=== PATIENT | female | born 1980 | race Caucasian/White ===

== ENCOUNTER → 2018-03-14 13:00 | Outpatient (CLI) | payer OTHER, SELFPAY | DX: Z23 Encounter for immunization (principal) | CPT/HCPCS: 90471; 90686 ==

== ENCOUNTER → 2019-04-01 17:26 | Outpatient (CLI) | payer OTHER, SELFPAY | DX: Z23 Encounter for immunization (principal) | CPT/HCPCS: 90471; 90686 ==

== ENCOUNTER → 2020-03-25 | Outpatient (CLI) | payer OTHER, SELFPAY | PROVIDERS: Referring Provider Internal Medicine; Visit Provider Internal Medicine | DX: Z23 Encounter for immunization (principal) | CPT/HCPCS: 90471; 90686 ==

== ENCOUNTER → 2020-05-25 10:33 | Outpatient (CLI) | payer OTHER, SELFPAY ==
[2020-05-25 10:59] LABS: COVID19 -Nasal RAPID Negative (Negative)
== END ==
PROVIDERS: Visit Provider Physician Assistant
DX: Z11.59 Encounter for screening for other viral diseases (principal)
CPT/HCPCS: 87635

== ENCOUNTER → 2020-06-03 08:35 | Outpatient (CLI) | payer OTHER, SELFPAY ==
[2020-06-03 09:04] LABS: COVID19 -Nasal RAPID Negative (Negative)
== END ==
PROVIDERS: Visit Provider Physician Assistant
DX: Z11.59 Encounter for screening for other viral diseases (principal)
CPT/HCPCS: 87635

== ENCOUNTER → 2020-09-20 06:58 | Outpatient (CLI) | payer OTHER, SELFPAY ==
--- NOTE | 2020-09-20 | DI.MRI.S_ITS ---
PROCEDURE: MR PELVIS WO/W CON INDICATIONS: Other noninflammatory disorders of ovary TECHNIQUE: Coronal HASTE, sagittal breath-hold T2 FSE; axial T1 FSE with and without fat saturation through the pelvis. Optional long- and short-axis uterine nonbreath-hold T2 FSE through the uterus. Sagittal or axial dynamic VIBE during administration of contrast. Post-contrast axial or coronal VIBE/2-D FLASH with fat saturation from the iliac crests to the symphysis. Optional diffusion weighted imaging and ADC may be performed. COMPARISON: [facility], , US PELVIC/TRANSVAGINAL, 08/24/2020, 7:59. FINDINGS: Image quality: Good. Uterus: Retroverted uterus measures 5.5 x 4.7 x 3.7 cm. Several uterine fibroids. -Left fundal intramural fibroid measuring 2.1 cm. Heterogeneous enhancement. -Right subserosal measuring 1.2 cm. -Right lower uterine segment intramural fibroid measuring 1 cm. -Right lower uterine segment exophytic 2.8 x 2.5 cm, ( and 01/03). (similar to ultrasound measured where it measured 2.4 cm). Homogeneous enhancement. This corresponds to the abnormality seen on pelvic ultrasound. This is adjacent to the right ovary. -Right lower uterine segment exophytic 0.7 cm. Endometrium: Endometrium is normal in thickness measuring 0.4 cm. Junctional zone is normal in thickness at 12 mm or less. Adnexa: Within normal limits. Multiple small ovarian follicles. No ovarian cystic lesion or mass. -Right ovary measures 2.6 x 2.2 x 1.5 cm, volume of 4 cc. -Left ovary measures 2.7 x 2.4 x 1.6 cm, volume of 5 cc. Urinary system: Bladder wall is normal in thickness. Distal ureters are non distended. Urethra appears normal in morphology. Nodes and vessels: No pelvic or inguinal adenopathy by size criteria. Iliac vessels are normal in size. Bowel and peritoneum: No pathologic free pelvic fluid. Inferior colon and small bowel loops are normal in caliber. Soft tissues: No inguinal hernias. No findings of pelvic floor incompetence in the absence of provocation. Bones: Marrow demonstrates normal overall signal. IMPRESSION: 1. No ovarian mass or cystic lesion. Exophytic fibroid adjacent to the right ovary measuring 2.8 cm. 2. Retroverted uterus. Multiple fibroids. 3. Endometrium measures 0.4 cm. No thickening of the junctional zone to suggest adenomyosis. Dictated by: Pavel Cancino M.D. on 09/24/2020 at 16:22 Approved by: Pavel Cancino M.D. on 09/24/2020 at 16:55
== END ==
PROVIDERS: PCP Student in an Organized Health Care Education/Training Program; Referring Provider Student in an Organized Health Care Education/Training Program; Visit Provider Student in an Organized Health Care Education/Training Program
DX: N83.8 Other noninflammatory disorders of ovary, fallopian tube and broad ligament (principal); D25.1 Intramural leiomyoma of uterus; D25.2 Subserosal leiomyoma of uterus
CPT/HCPCS: 72197; A9579

== ENCOUNTER → 2021-04-07 11:02 | Outpatient (CLI) | payer OTHER, SELFPAY | PROVIDERS: PCP Student in an Organized Health Care Education/Training Program; Referring Provider Internal Medicine; Visit Provider Internal Medicine | DX: Z23 Encounter for immunization (principal) | CPT/HCPCS: 90471; 90686 ==

== ENCOUNTER → 2022-03-24 17:14 | Outpatient (CLI) | payer OTHER, SELFPAY | PROVIDERS: PCP Student in an Organized Health Care Education/Training Program; Referring Provider Internal Medicine; Visit Provider Internal Medicine | DX: Z23 Encounter for immunization (principal) | CPT/HCPCS: 90471; 90686 ==

== ENCOUNTER → 2022-12-20 07:43 | Outpatient (CLI) | payer OTHER, SELFPAY ==
--- NOTE | 2022-12-20 07:43 | DI.US.S_ITS ---
PROCEDURE: US PELVIC COMPLETE INDICATIONS: FIBROIDS TECHNIQUE: Real-time scanning was performed of the pelvic organs, with image documentation. Additional endovaginal scanning was necessary due to incomplete visualization of the adnexal and endometrial structures by transabdominal scanning. COMPARISON: [facility], MR, MR PELVIS WO/W CON, 09/20/2020, 7:37. [facility], RG, US PELVIC/TRANSVAGINAL, 08/24/2020, 7:59. FINDINGS: Uterus: Uterus is retroverted and normal in size at 5.5 x 4.6 x 5.0 cm. Endometrium is distorted by fibroids. Myometrium is heterogeneous and contains multiple fibroids. For example: A right anterior subserosal fibroid measures 3.9 x 3.7 x 2.8 cm. A midline posterior intramural fibroid measures 4.2 x 2.7 x 3.1 cm. A right anterior subserosal fibroid measures 1.9 x 1.5 x 1.7 cm. Ovaries: The right ovary measures 2.3 x 1.5 x 2.0 cm, with a calculated ovarian volume of 3.5 cc. The left ovary measures 3.7 x 5.0 x 2.7 cm, with a calculated ovarian volume of 26.3 cc. A simple cyst in the left ovary measures 4.1 x 2.6 x 3.5 cm. The ovaries have a normal sonographic appearance. Less than 12 follicles can be seen in each ovary. No adnexal masses are seen. Other: No pathologic free abdominal or pelvic fluid. IMPRESSION: 1. Multiple uterine fibroids appear mildly increased in size. 2. Left ovarian 4.1 cm simple cyst. We strive to produce accurate, complete, and clear reports of imaging services. To assist us in improving patient care, this report was composed using standard report templates and voice recognition software. Therefore, it may contain abnormal punctuation, insertions and/or omissions. Occasional wrong-word or sound-alike substitutions may occur. Though we review the report and make efforts to correct it, we do recommend that the report be read carefully in proper context to recognize any text inaccuracies. Approved by: Paddy Thakkar M.D. on 12/20/2022 at 10:51
== END ==
PROVIDERS: PCP Family Medicine; Referring Provider Family Medicine; Visit Provider Family Medicine
DX: D25.1 Intramural leiomyoma of uterus (principal); D25.2 Subserosal leiomyoma of uterus; N83.292 Other ovarian cyst, left side
CPT/HCPCS: 76830; 76856

== ENCOUNTER 2023-04-02 10:53 | Day surgery (SDC) | payer OTHER, SELFPAY ==
[2023-03-15 09:24] VITALS: BMI 23.9
[2023-04-02] VITALS (11 sets, daily range): BP systolic 106–148; BP diastolic 61–90; PULSE 70–97; RESP 12–19; TEMP 36.3–36.7; O2SAT 94–99; BMI 23.9
--- NOTE | 2023-04-02 | PATH_ITS ---
[facility] Accession Number: [id number] No. of containers..01 Tissue . 01 Material submitted: . uterus - UTERUS AND BILATERAL FALLOPIAN TUBES . 01 Diagnosis: A. Uterus and Bilateral Fallopian Tubes, Supracervical Hysterectomy and Bilateral Salpingectomy: Myometrium with leiomyomas (up to 1.9 cm). Nonproliferative endometrium. Fallopian tubes unilaterally involved by endometriosis, in addition to benign paratubal cysts. No evidence of malignancy. MRV 04/05/2023 1548 Local . 01 Electronically signed: . Magaly Underwood MD, Pathologist NPI- [id number] . 01 Gross description: . The specimen is received in formalin labeled with the patient's name, , and uterus and bilateral fallopian tubes, consists of a fragmented uterus (__11 grams, 12.1 x 9.0 x 3.8 cm) with two unoriented fimbriated fallopian tubes (6.2 x 0.5 cm and 5.2 x 0.3 cm, respectively), and no cervix or additional adnexa identified. The serosa is pablo and wrinkled with no evidence of hemorrhage or adhesion identified. The endometrium is red-brown and velvety averaging 0.1 cm thick with no lesions identified. The myometrium is pablo and trabecular with multiple well-circumscribed white whorled nodules measuring up to 1.9 cm in greatest dimension with no hemorrhage or necrosis identified. . The longer fallopian tube has violaceous smooth serosa with multiple small cystic structures measuring up to 0.2 cm in greatest dimension filled with cloudy serous fluid. Sectioning reveals an unremarkable stellate lumen. The shorter fallopian tube has pablo, smooth serosa with no cystic structures identified, and sectioning reveals an unremarkable stellate lumen. . Hemodialysis Technician sections are submitted as follows: A1: Endometrium. A2: Serosa. A3: Hemodialysis Technician nodules. A4: Longer fallopian tube to include one-half of bisected fimbriae and cross sections. A5: [place] fallopian tube to include one-half of bisected fimbriae and cross sections. ([id number]) /MRV 04/03/2023 1243 Local . 01 Microscopic: . CD10 immunostain is performed on block A5, with appropriately staining external controls, and highlights the area of endometriosis, in support of the diagnosis. . * This test was developed and its performance characteristics determined by [facility]. It has not been cleared or approved by the U.S. Food and Drug Administration. The FDA has determined that such clearance or approval is not necessary. This test is used for clinical purposes. It should not be regarded as investigational or for research. . 01 Pathologist provided ICD-10: D25.9, N80.9 . 01 CPT . 671921, L45870 Specimen Comment: A courtesy copy of this report has been sent to [phone] Performed at: 01 [facility] [address] [place] [address], [place], [place] [id number] MD Lavon Mclean MD Phone: [phone]
[2023-04-02] MEDS: LACTATED RINGERS 1,000 ML 100 ML IV ×2 (11:38→12:55)
--- NOTE | 2023-04-02 11:49 | PM.PREOP ---
Pre-operative Note Interval Note History & Physical reviewed/Exam performed by Physician: Yes Changes to H&P: No H&P completed within 30 days and has changed as indicated here:: 03/15/23
[2023-04-02] MEDS: CEFAZOLIN 2 GM/100 ML PREMIX 100 ML IV (12:05)
[2023-04-02] MEDS: ACETAMINOPHEN IV 1,000 MG/100 ML VIAL 400 MG IV (12:10)
--- NOTE | 2023-04-02 12:27 | SUR.OPER ---
Lithotomy on padded OR bed. [place] Pad Positioner under torso. Head on pillow, arms padded and tucked at sides. Legs secured in padded yellow fins stirrups. Lithotomy on padded OR bed. [place] Pad Positioner under torso. Head on pillow, arms padded and tucked at sides. Legs secured in padded yellow fins stirrups.
[2023-04-02] MEDS: BUPIVACAINE 0.5% (PF) 30 ML, EPINEPHrine 0.15 MG INJ (12:51)
[2023-04-02] MEDS: ROPIVACAINE 0.2% PF 2 MG/ML 10ML AMP 20 ML INJ (12:52)
--- NOTE | 2023-04-02 13:59 | PM.GYNOP.1 ---
Operative Date/Time/Diagnoses Date of procedure: 04/02/23 Time of procedure: 13:59 Pre-op diagnosis: Enlarged multi fibroid uterus Menorrhagia Dysmenorrhea Post-op diagnosis: same Procedure & Clinicians Procedure: Procedures Operation Date: 04/02/23 12:15 Actual Procedure Side Surgeon p Laparoscopic Supracervical Hysterectomy with Bilateral Salpingectomy Christina Santoyo MD Indications: 42-year-old with an enlarged fibroid uterus, menorrhagia, and dysmenorrhea Surgeon: Christina Santoyo Hospitalist Medical Director: Shellie Carlin Anesthesia Type: General and Local Operative Notes Findings: 12 week size multifibroid uterus Normal tubes and ovaries Normal liver Some scarring of the gallbladder Appendix with possibly some endometriosis and adhesions to the right pelvic sidewall Closure Type: primary Specimen(s): left tube, right tube and uterus Applied: catheter (Removed at the end of the case) Estimated blood loss (mL): 25 Blood products transfused: none Procedure in detail: The patient was taken to the operating room where she was placed in the dorsal supine position. After adequate general endotracheal anesthesia was achieved, she was placed in the dorsal lithotomy position, and prepped and draped in the usual sterile fashion. A timeout was performed. A bivalve speculum was placed into the vagina and the anterior lip of the cervix grasped with a single-tooth tenaculum. The cervical os was sequentially dilated until the ZUMI uterine manipulator could pass easily into the endometrial cavity. The single-tooth tenaculum was removed from the anterior lip of the cervix, and the bivalve speculum was removed from the vagina. Attention was then turned to the abdomen where 6 mL of half percent Marcaine with epinephrine were injected in the umbilical fold. A 5 mm incision was made. The Verees needle was placed into the peritoneal cavity, and its placement confirmed by aspiration and drop test. The Verees needle was removed. A 5 mm trocar was placed without difficulty. 2 other incisions were made 4 cm lateral to the umbilicus after 5 mL of half percent Marcaine with epinephrine were injected. These were 5 mm incisions. Two 5 mm trocars were placed under direct visualization. The right tube was grasped with an atraumatic grasper. Using the power seal, the mesosalpinx was cauterized and cut all the way down to the cornua of the uterus. The cornua of the uterus was then grasped with an atraumatic grasper. The utero-ovarian ligaments were cauterized and cut. The round ligament and broad ligament was cauterized and cut with power seal. Hemostasis was achieved. The bladder flap was created using the power seal with cautery and cut residential across. The uterine arteries on the right side were extensively cauterized with the power seal. All of this was repeated on the left side. The remainder of the bladder flap was created using the power seal, and the bladder taken down off the lower uterine segment and cervix. Using the [place], the cervix was amputated from the uterus 2 cm above the uterosacral ligaments, after the ZUMI uterine manipulator was removed from the uterus. There was a small amount of bleeding noted from the posterior edge of the cervix, and this was cauterized for hemostasis. The endocervical canal was extensively cauterized with the spatula cautery. A sponge stick was placed into the vagina. 6 mL of half percent Marcaine with epinephrine were injected above the pubic symphysis. A 12 mm trocar was placed. An Endobag was placed through the suprapubic trocar and the uterus and tubes were placed into the Endobag. The trocar was removed. The edges of the bag were brought up through the skin. An Saul was placed into the endobag. The uterus was hand morcellated in approximately 10 pieces. The Endobag was removed from the peritoneal cavity. The fascia was closed on the suprapubic incision using 0 Vicryl. The abdomen was re-insufflated with carbon dioxide gas. The pelvis was copiously irrigated with warm normal saline. No bleeding was noted. The instruments were removed from the abdomen. The CO2 was allowed to escape. Two simple interrupted sutures with 3-0 Vicryl were placed in the subcutaneous layer on the suprapubic incision. All of the incisions were closed with 4-0 Biosyn in a subcuticular fashion. Steri-Strips and Allevyn dressings were placed. The moistened sponge stick was removed from the vagina. Sponge, lap, and instrument counts were correct x-2. The patient tolerated the procedure well, was taken to PACU in stable condition.
== END 2023-04-02 16:00 | disposition home or self-care (01) ==
PROVIDERS: PCP Family Medicine; Referring Provider Obstetrics & Gynecology; Visit Provider Obstetrics & Gynecology
PROC: 0UT94ZL Resection of Uterus, Supracervical, Percutaneous Endoscopic Approach (ICD-10-PCS; CPT 58542; principal; 2023-04-02 12:15)
DX: D25.9 Leiomyoma of uterus, unspecified (principal); N92.0 Excessive and frequent menstruation with regular cycle; N94.6 Dysmenorrhea, unspecified; N73.6 Female pelvic peritoneal adhesions (postinfective); N80.209 Endometriosis of unspecified fallopian tube, unspecified depth; N83.8 Other noninflammatory disorders of ovary, fallopian tube and broad ligament
CPT/HCPCS: 58542; J0131; J0171; J0690; J1100; J1170; J1885; J2405; J2704; J2795; J3010; J3490

== ENCOUNTER → 2023-05-18 10:57 | Outpatient (CLI) | payer OTHER, SELFPAY | PROVIDERS: PCP Family Medicine; Referring Provider Family Medicine; Visit Provider Family Medicine | DX: Z23 Encounter for immunization (principal) | CPT/HCPCS: 90471; 90686 ==

== ENCOUNTER → 2023-09-27 08:23 | Outpatient (CLI) | payer OTHER, SELFPAY ==
--- NOTE | 2023-09-27 08:24 | DI.MG.S_ITS ---
BILATERAL DIGITAL SCREENING MAMMOGRAM 3D/2D WITH CAD WITH AUGMENTATION: 09/27/2023 CLINICAL: Baseline exam. Routine screening. Family History of Breast Cancer. No prior exams were available for comparison. Both breasts are heterogeneously dense, which may obscure small masses (category c / 51-75% glandular tissue). Current study was also evaluated with a Computer Aided Detection (CAD) system. There are grouped calcifications in the right breast at 11 o'clock middle depth. No other significant masses, calcifications, or other findings are seen in either breast. IMPRESSION: INCOMPLETE: NEEDS ADDITIONAL IMAGING EVALUATION The grouped calcifications in the right breast are indeterminate. Additional views are recommended. Based on the Tyrer Cuzick model (a risk assessment model) the patient's lifetime risk is 13.9% and her 10 year risk is 1.9%. According to the ACR, ACS, and NCCN guidelines, an annual breast MRI exam along with mammogram is recommended if the patient's lifetime risk is 20% or greater. This exam was interpreted at Station ID: [id number]. NOTE: For mammograms, a report in lay terms will be sent to the patient. Approximately 15% of breast malignancies will not be visualized mammographically. In the management of a palpable breast mass, a negative mammogram must not discourage biopsy of a clinically suspicious lesion. Electronically Signed By: Homar Shearer M.D. lc/:09/27/2023 11:24:25 letter sent: Additional Imaging Needed ACR BI-RADS Category 0: Incomplete [id number]
== END ==
LOC: MAMMO 08:23
PROVIDERS: PCP Family Medicine; Referring Provider Family Medicine; Visit Provider Family Medicine
DX: Z12.31 Encounter for screening mammogram for malignant neoplasm of breast (principal); Z80.3 Family history of malignant neoplasm of breast; R92.333 Mammographic heterogeneous density, bilateral breasts
CPT/HCPCS: 77063; 77067

== ENCOUNTER → 2023-10-11 07:48 | Outpatient (CLI) | payer OTHER, SELFPAY ==
--- NOTE | 2023-10-11 | DI.MG.S_ITS ---
UNILATERAL RIGHT DIGITAL DIAGNOSTIC MAMMOGRAM 3D/2D WITH ADDITIONAL VIEWS: 10/11/2023 CLINICAL: Additional evaluation requested from prior study. Comparison is made to exam dated: 09/27/2023 mammogram - [facility]. The right breast is heterogeneously dense, which may obscure small masses (category c / 51-75% glandular tissue). There are 0.3 cm grouped punctate calcifications in the right breast upper outer quadrant at middle depth. These calcifications correspond to calcifications seen on recent baseline screening mammogram. No other significant masses or calcifications are seen in the breast. IMPRESSION: PROBABLY BENIGN Right breast 0.3 cm grouped punctate calcifications in the middle upper outer position seen initially on baseline screening mammogram. Finding is probably benign. A follow-up mammogram in 6 months is recommended to demonstrate stability. Findings and recommendations were conveyed to the patient during today's evaluation. Based on the Tyrer Cuzick model (a risk assessment model) the patient's lifetime risk is 14.6% and her 10 year risk is 2.2%. According to the ACR, ACS, and NCCN guidelines, an annual breast MRI exam along with mammogram is recommended if the patient's lifetime risk is 20% or greater. This exam was interpreted at Station ID: [id number]. NOTE: For mammograms, a report in lay terms will be sent to the patient. Approximately 15% of breast malignancies will not be visualized mammographically. In the management of a palpable breast mass, a negative mammogram must not discourage biopsy of a clinically suspicious lesion. Electronically Signed By: Ольга Gardner M.D., Ph.D. eb/:10/11/2023 09:40:30 letter sent: Followup Recommended ACR BI-RADS Category 3: Probably benign [id number]
== END ==
LOC: MAMMO 07:49
PROVIDERS: PCP Family Medicine; Referring Provider Family Medicine; Visit Provider Family Medicine
DX: R92.8 Other abnormal and inconclusive findings on diagnostic imaging of breast (principal); R92.1 Mammographic calcification found on diagnostic imaging of breast; R92.331 Mammographic heterogeneous density, right breast
CPT/HCPCS: 77065; G0279

== ENCOUNTER → 2024-04-03 16:20 | Outpatient (CLI) | payer OTHER, SELFPAY | PROVIDERS: PCP Family Medicine; Referring Provider Internal Medicine; Visit Provider Internal Medicine | DX: Z23 Encounter for immunization (principal) | CPT/HCPCS: 90471; 90656 ==